=== PATIENT | female | born 1955 | race Caucasian/White ===

== ENCOUNTER → 2016-10-08 | Outpatient (CLI) | payer OTHER ==
[~2016-10-08] MED LIST: ADVAIR 250/501 EA INH; ALBUTEROL0.09 MG/Ac IH; ALLERGY RELIEF10 M1 PO; ALTOCOR60 MG PO; ASPIRIN CHILDRE81 MG PO; BUSPAR5 MG PO; CELEXA40 MG PO; CLARITIN10 MG PO; CORDROL20 MG PO; DIAZEPAM10 MG PO; EC NAPROSYN500 MG PO; GLYBURIDE2.5 MG PO; KEFLEX500 MG PO; LISINOPRIL/HCTZ1 TA3; LISINOPRIL/HCTZ1 TA3 PO; LOVASTATIN40 MG PO; METFORMIN1000 MG PO; METOPROLOL SR50 MG PO; MOTRIN800 MG PO; NAPROXEN500 M1 PO; O; OMEPRAZOLE20 MG PO; ONGLYZA5 MG PO; PERPHENAZINE16 MG PO; PLAVIX75 MG PO; SERTRALINE100 MG PO; TRAMADOL HCL50 MG PO; VALIUM10 MG PO; VIBRAMYCIN100 MG PO; Vicodin 5/500 505 MG PO; ZITHROMAX Z PA250 MG PO; ZITHROMAX250 MG PO; ZOLOFT100 MG PO
[2016-10-08 15:56] LABS: BASO # 0.1 10*3/uL (0.0-0.1); BASO % 0.5 % (0.0-1.0); EOS # 0.2 10*3/uL (0.0-0.4); EOS % 1.5 % (1.0-4.0); HEMATOCRIT 46.1 % (37.0-47.0); HEMOGLOBIN 15.4 g/dl (12.0-16.0); IG # 0.1 10*3/uL (0.0-0.1); LYMPH # 3.5 10*3/uL (1.3-4.4); LYMPH % 27.2 % (27.0-41.0); MEAN CELL VOLUME 89.3 fl (81.0-99.0); MEAN CORPUSCULAR HGB 29.8 pg (27.0-31.0); MEAN CORPUSCULAR HGB CONC 33.4 g/dl (33.0-37.0); MEAN PLATELET VOLUME 9.3 fl (9.6-12.3); MONO # 1.1 10*3/uL (0.1-1.0); MONO % 8.2 % (3.0-9.0); NEUT # 8.1 10*3/uL (2.3-7.9); NEUT % 62.2 % (47.0-73.0); PLATELET COUNT AUTOMATED 294 10*3/uL (130-400); RED BLOOD COUNT 5.16 10*6/uL (4.10-5.10); RED CELL DISTRI WIDTH 12.9 % (0-14.5)
[2016-10-08 16:24] LABS: ALBUMIN 3.9 gm/dl (3.1-4.5); ALKALINE PHOSPHATASE 53 U/L (45-117); BILIRUBIN, TOTAL 0.2 mg/dl (0.2-1.0); BUN 19 mg/dl (7-24); CARBON DIOXIDE 24 mmol/L (21-32); CHLORIDE 104 mmol/L (98-107); CHOLESTEROL 263 mg/dL (<200); EST GLOM FILT AFRICAN AMERICAN > 60 ml/min; GLUCOSE 86 mg/dL (65-99); HDL CHOLESTEROL 41 mg/dl (40-60); LDL CHOLESTEROL 172 mg/dL (9-159); POTASSIUM 4.1 mmol/L (3.5-5.1); SGOT/AST 16 IU/L (3-35); SGPT/ALT 24 U/L (12-78); SODIUM 139 mmol/L (136-145); TOTAL PROTEIN 8.1 gm/dL (6.4-8.2); TRIGLYCERIDES 250 mg/dl (<150); VLDL CHOLESTEROL 50 mg/dL (6-40)
== END | disposition home or self-care (01) ==
LOC: LAB 15:39
PROVIDERS: Internal Medicine
DX: E11.42 Type 2 diabetes mellitus with diabetic polyneuropathy (principal); E78.2 Mixed hyperlipidemia; E55.9 Vitamin D deficiency, unspecified

== ENCOUNTER → 2016-10-17 | Outpatient (CLI) | payer OTHER ==
[~2016-10-17] MED LIST changes: +BENZTROPINE MESY1 MG PO; +CITALOPRAM40 MG PO; +CYCLOBENZAPRINE10 MG PO; +DIAZEPAM5 MG PO; +EVISTA60 MG PO; +GABAPENTIN100 M2 PO; +GLYBURIDE5 MG PO; +IMDUR SA30 MG PO; +JANUVIA100 MG PO; +LISINOPRIL-HYDR1 TA3 PO; +MELOXICAM7.5 MG PO; +OMEPRAZOLE40 MG PO; +OYSTER SHELL CA1 T17 PO; +PERPHENAZINE8 MG PO; +ULTRAM50 MG PO; +VENTOLIN 02.5 MG/3 M INH; +VENTOLIN H0.09 MG/AC INH; +VIT D2 PO
--- NOTE | ~2016-10-17 | ST ---
[place], [place] EXERCISE STRESS TEST REPORT NAME: DEBBIE TRAVIS UNIT #: [id number] ROOM: DOCTOR: NUSRAT KIDD FACP, MD BIRTHDATE: [birth year] DOS: 10/17/2016 Stress test done for evaluation of coronary artery disease, hypercholesterolemia, chest pain. Physical exam is negative. EKG is normal. Lexiscan is injected. Radiological studies are awaited. Nuclear report will be sent to Dr. Plata. JAC FAYE MD CM:STRESS:EXERCISE STRESS TEST REPORT [id number] MELLISA AGUIAR MD
== END | disposition home or self-care (01) ==
LOC: CARD 02:08
DX: I25.110 Atherosclerotic heart disease of native coronary artery with unstable angina pectoris (principal); E78.00 Pure hypercholesterolemia, unspecified; R07.9 Chest pain, unspecified

== ENCOUNTER → 2018-06-03 | Outpatient (CLI) | payer OTHER | END | disposition home or self-care (01) | LOC: RAD 12:07 | DX: M48.061 Spinal stenosis, lumbar region without neurogenic claudication (principal) ==

== ENCOUNTER 2018-07-29 09:08 | Emergency (ER) | payer OTHER ==
[~2018-07-29] VITALS: Ht 162.5 cm; Wt 63.5 kg
--- NOTE | ~2018-07-29 | EKG ---
[place], [place] ELECTROCARDIOGRAM REPORT NAME: DEBBIE TRAVIS UNIT #: [id number] ROOM: DOCTOR: GERMÁN DRAFT REPORT BIRTHDATE: [birth year] [facility] Test Date: 2018-07-29 Test Time: 09:21:40 Pat Name: DEBBIE TRAVIS Department: Room: Gender: F Patient Scheduling Manager: : [id number] Requested By: RAO TOVAR Order Number: [id number] Reading MD: Frederick Hernandez MD Measurements Intervals [place] Rate: 81 P: 82 CO: 162 QRS: 92 QRSD: 92 T: 15 QT: 375 QTc: 436 Interpretive Statements Sinus rhythm Biatrial enlargement Right axis deviation Anteroseptal infarct, old No previous ECG available for comparison Electronically Signed On 07-29-2018 17:20:04 PST by Frederick Hernandez MD CM:EKGRPT:ELECTROCARDIOGRAM REPORT [id number] RAO NAVARRETE DRAFT REPORT RAO TOVAR DO
[2018-07-29 09:12] VITALS: BP 97/57
[2018-07-29 09:41] LABS: HEMOGLOBIN 12.5 g/dl (12.0-16.0); MEAN CELL VOLUME 94.6 fl (81.0-99.0); MEAN CORPUSCULAR HGB 29.6 pg (27.0-31.0); MEAN CORPUSCULAR HGB CONC 31.3 g/dl (33.0-37.0); MEAN PLATELET VOLUME 9.2 fl (9.6-12.3); PLATELET COUNT AUTOMATED 312 10*3/uL (130-400); RED BLOOD COUNT 4.23 10*6/uL (4.10-5.10); RED CELL DISTRI WIDTH 14.1 % (0-14.5); WHITE BLOOD COUNT 10.8 10*3/uL (4.8-10.8)
[2018-07-29 09:52] LABS: ACT PARTIAL THROMBO TIME 27.7 SECONDS (20.8-31.5)
[2018-07-29 09:55] LABS: ALBUMIN 2.6 gm/dl (3.1-4.5); CREATININE 3.37 mg/dL (0.55-1.02); POTASSIUM 4.7 mmol/L (3.5-5.1); TOTAL PROTEIN 7.8 gm/dL (6.4-8.2)
[2018-07-29 10:01] LABS: TROPONIN I 0.411 ng/ml (<0.045)
[2018-07-29 10:04] LABS: ATYPICAL LYMPHS 3 % (0-0); TOTAL CELLS COUNTED 100 #CELLS
[2018-07-29 10:05] LABS: PLATELET SUFFICIENCY NORMAL (NORMAL); POLYCHROMASIA SLIGHT
== END 2018-07-29 10:28 | disposition left against medical advice (07) ==
LOC: ED 09:08
PROVIDERS: Emergency Medicine
DX: J44.1 Chronic obstructive pulmonary disease with (acute) exacerbation (principal); R79.89 Other specified abnormal findings of blood chemistry; Z79.84 Long term (current) use of oral hypoglycemic drugs; Z79.899 Other long term (current) drug therapy

== ENCOUNTER 2022-07-21 18:46 | Emergency (ER) | payer OTHER ==
[~2022-07-21] VITALS: Ht 162.5 cm; Wt 61.2 kg
[~2022-07-21 18:46] MED LIST changes: +CITALOPRAM20 MG PO
[2022-07-21 19:05] VITALS: BP 144/74
[2022-07-21 19:49] LABS: HEMATOCRIT 45.3 % (37.0-47.0); MEAN CELL VOLUME 89.5 fl (81.0-99.0); MEAN CORPUSCULAR HGB 30.6 pg (27.0-31.0); MEAN CORPUSCULAR HGB CONC 34.2 g/dl (33.0-37.0); MEAN PLATELET VOLUME 8.4 fl (9.6-12.3); PLATELET COUNT AUTOMATED 378 10*3/uL (130-400); RED BLOOD COUNT 5.06 10*6/uL (4.10-5.10); RED CELL DISTRI WIDTH 12.7 % (0-14.5)
[2022-07-21 19:55] LABS: MANUAL DIFF REFLEX YES
[2022-07-21 20:05] LABS: ACT PARTIAL THROMBO TIME 25.6 SECONDS (20.0-32.1); INTERNATIONAL NORM RATIO 0.9 (2.0-3.5)
[2022-07-21 20:26] LABS: BILIRUBIN Negative (Negative); BLOOD Negative (Negative); CLARITY Clear (Clear); COLOR Yellow (Yellow); GLUCOSE Negative (Negative); KETONE Negative (Negative); LEUKO ESTERASE Negative (Negative); NITRITE Negative (Negative); PH 5.5 (4.5-8.0); UROBILINOGEN 0.2 E.U./dl (0.0-1.0)
[2022-07-21 20:29] LABS: BASOPHILS 2 % (0-1); PLATELET SUFFICIENCY NORMAL (NORMAL); TOTAL CELLS COUNTED 100 #CELLS
[2022-07-21 20:38] LABS: POTASSIUM 3.9 mmol/L (3.4-5.1); TOTAL PROTEIN 6.9 gm/dL (6.0-8.0)
[2022-07-21 20:44] LABS: BACTERIA TRACE; EPITHELIAL CELLS 16-20; HYALINE CAST 0-2; RBC 0-2 rbc/hpf (0-2); WBC 0-2 wbc/hpf (0-5)
== END 2022-07-21 23:40 | disposition home or self-care (01) ==
LOC: ED 18:46
PROVIDERS: Family Medicine
DX: F20.9 Schizophrenia, unspecified (principal); F41.9 Anxiety disorder, unspecified; G47.00 Insomnia, unspecified; F17.210 Nicotine dependence, cigarettes, uncomplicated; Z79.899 Other long term (current) drug therapy; Z98.890 Other specified postprocedural states

== ENCOUNTER 2022-07-24 10:49 | Emergency (ER) | payer OTHER ==
[~2022-07-24] VITALS: Wt 61.2 kg
[2022-07-24 13:03] LABS: BILIRUBIN Negative (Negative); BLOOD Negative (Negative); CLARITY Clear (Clear); COLOR Yellow (Yellow); GLUCOSE 1+ (Negative); KETONE Negative (Negative); LEUKO ESTERASE Negative (Negative); NITRITE Negative (Negative); PH 5.5 (4.5-8.0); SPECIFIC GRAVITY <= 1.005 (1.001-1.030); UROBILINOGEN 0.2 E.U./dl (0.0-1.0)
[2022-07-24 13:18] LABS: EPITHELIAL CELLS 0-2
[2022-07-24 13:21] VITALS: BP 126/64
== END 2022-07-24 15:15 | disposition home or self-care (01) ==
LOC: ED 10:49
PROVIDERS: Physician Assistant
DX: N90.89 Other specified noninflammatory disorders of vulva and perineum (principal); Z98.890 Other specified postprocedural states; Z72.0 Tobacco use

== ENCOUNTER 2022-08-01 17:52 | Emergency (ER) | payer OTHER ==
[~2022-08-01] VITALS: Wt 61.2 kg
[2022-08-01 18:24] LABS: BASO # 0.1 10*3/uL (0.0-0.1); BASO % 0.4 % (0.0-1.0); EOS # 0.1 10*3/uL (0.0-0.4); EOS % 0.6 % (1.0-4.0); HEMATOCRIT 40.9 % (37.0-47.0); LYMPH # 1.5 10*3/uL (1.3-4.4); LYMPH % 11.1 % (27.0-41.0); MEAN CELL VOLUME 92.7 fl (81.0-99.0); MEAN CORPUSCULAR HGB 30.8 pg (27.0-31.0); MEAN CORPUSCULAR HGB CONC 33.3 g/dl (33.0-37.0); MEAN PLATELET VOLUME 8.6 fl (9.6-12.3); MONO # 0.8 10*3/uL (0.1-1.0); MONO % 5.9 % (3.0-9.0); NEUT # 11.1 10*3/uL (2.3-7.9); NEUT % 81.3 % (47.0-73.0); PLATELET COUNT AUTOMATED 288 10*3/uL (130-400); RED BLOOD COUNT 4.41 10*6/uL (4.10-5.10); RED CELL DISTRI WIDTH 12.7 % (0-14.5); WHITE BLOOD COUNT 13.6 10*3/uL (4.8-10.8)
[2022-08-01 18:39] LABS: ALKALINE PHOSPHATASE 64 U/L (46-116); BUN 8 mg/dl (9-23); CHLORIDE 99 mmol/L (98-107); POTASSIUM 4.2 mmol/L (3.4-5.1); SGPT/ALT 19 U/L (10-49); TOTAL PROTEIN 6.5 gm/dL (6.0-8.0)
[2022-08-01 18:42] LABS: ETHYL ALCOHOL < 3.0 mg/dl (<3)
[2022-08-01 19:32] LABS: BILIRUBIN Negative (Negative); BLOOD Negative (Negative); CLARITY Clear (Clear); COLOR Yellow (Yellow); GLUCOSE Negative (Negative); KETONE Trace (Negative); LEUKO ESTERASE 1+ (Negative); NITRITE Negative (Negative); PH 5.5 (4.5-8.0); SPECIFIC GRAVITY <= 1.005 (1.001-1.030); UROBILINOGEN 0.2 E.U./dl (0.0-1.0)
[2022-08-01 19:39] LABS: URINE AMPHETAMINES Negative (1000ng/ml); URINE BARBITURATES Negative (200ng/ml); URINE BENZODIAZEPINES Negative (200ng/ml); URINE CANNABINOIDS (THC) Negative (50ng/ml); URINE COCAINE Negative (300ng/ml); URINE METHADONE Negative (300ng/ml); URINE OPIATES Negative (300ng/ml); URINE PHENCYCLIDINE Negative (25ng/ml)
[2022-08-01 19:40] LABS: BACTERIA TRACE
[2022-08-02 08:00] VITALS: BP 130/70
== END 2022-08-02 12:28 ==
LOC: ED 17:52
PROVIDERS: Emergency Medicine
DX: G40.909 Epilepsy, unspecified, not intractable, without status epilepticus (principal); F06.2 Psychotic disorder with delusions due to known physiological condition; E11.9 Type 2 diabetes mellitus without complications; F31.9 Bipolar disorder, unspecified; Z98.890 Other specified postprocedural states; F10.10 Alcohol abuse, uncomplicated; Z72.0 Tobacco use; Z20.822 Contact with and (suspected) exposure to COVID-19

== ENCOUNTER 2023-09-18 21:30 | Emergency (ER) | payer MEDICARE ==
[~2023-09-18] VITALS: Ht 162.5 cm; Wt 59.0 kg
[2023-09-18 21:32] VITALS: BP 134/76
[2023-09-18 21:54] LABS: BASO # 0.1 10*3/uL (0.0-0.1); BASO % 0.5 % (0.0-1.0); EOS # 0.1 10*3/uL (0.0-0.4); EOS % 0.7 % (1.0-4.0); HEMATOCRIT 43.5 % (37.0-47.0); LYMPH # 1.8 10*3/uL (1.3-4.4); LYMPH % 16.5 % (27.0-41.0); MEAN CELL VOLUME 91.2 fl (81.0-99.0); MEAN CORPUSCULAR HGB 29.6 pg (27.0-31.0); MEAN CORPUSCULAR HGB CONC 32.4 g/dl (33.0-37.0); MEAN PLATELET VOLUME 8.5 fl (9.6-12.3); MONO # 0.9 10*3/uL (0.1-1.0); MONO % 8.5 % (3.0-9.0); NEUT # 7.9 10*3/uL (2.3-7.9); NEUT % 73.3 % (47.0-73.0); PLATELET COUNT AUTOMATED 298 10*3/uL (130-400); RED BLOOD COUNT 4.77 10*6/uL (4.10-5.10); RED CELL DISTRI WIDTH 12.7 % (0-14.5); WHITE BLOOD COUNT 10.8 10*3/uL (4.8-10.8)
[2023-09-18 22:12] LABS: BUN 7 mg/dl (9-23); CHLORIDE 103 mmol/L (98-107); CPK 233 U/L (34-171); ETHYL ALCOHOL < 3.0 mg/dl (<3); POTASSIUM 3.9 mmol/L (3.4-5.1)
[2023-09-18 22:19] LABS: BILIRUBIN Negative (Negative); BLOOD Trace-Lysed (Negative); CLARITY Clear (Clear); COLOR Yellow (Yellow); GLUCOSE Negative (Negative); KETONE Trace (Negative); LEUKO ESTERASE Negative (Negative); NITRITE Negative (Negative); SPECIFIC GRAVITY <= 1.005 (1.001-1.030); UROBILINOGEN 0.2 E.U./dl (0.0-1.0)
[2023-09-18 22:26] LABS: URINE AMPHETAMINES Negative (1000ng/ml); URINE BARBITURATES Negative (200ng/ml); URINE BENZODIAZEPINES Negative (200ng/ml); URINE CANNABINOIDS (THC) Negative (50ng/ml); URINE COCAINE Negative (300ng/ml); URINE METHADONE Negative (300ng/ml); URINE OPIATES Negative (300ng/ml); URINE PHENCYCLIDINE Negative (25ng/ml)
[2023-09-18 22:40] LABS: BACTERIA 1+; RBC 0-2 rbc/hpf (0-2); YEAST TRACE
[2023-09-18] MEDS ORDERED: CIPRO500 MG PO (23:35)
== END 2023-09-19 00:09 | disposition home or self-care (01) ==
LOC: ED 21:30
PROVIDERS: Internal Medicine
DX: F22 Delusional disorders (principal); N39.0 Urinary tract infection, site not specified; J44.9 Chronic obstructive pulmonary disease, unspecified; F32.A Depression, unspecified; E11.9 Type 2 diabetes mellitus without complications; F41.9 Anxiety disorder, unspecified; K21.9 Gastro-esophageal reflux disease without esophagitis; E78.00 Pure hypercholesterolemia, unspecified; I25.10 Atherosclerotic heart disease of native coronary artery without angina pectoris; I10 Essential (primary) hypertension; Z79.899 Other long term (current) drug therapy; Z98.890 Other specified postprocedural states; Z72.0 Tobacco use

== ENCOUNTER 2023-09-20 09:14 | Emergency (ER) | payer OTHER ==
[~2023-09-20] VITALS: Ht 162.5 cm; Wt 56.7 kg
[~2023-09-20 09:14] MED LIST changes: +CIPRO500 MG PO
[2023-09-20 09:21] VITALS: BP 139/89
[2023-09-20 09:54] LABS: BASO # 0.1 10*3/uL (0.0-0.1); BASO % 0.7 % (0.0-1.0); EOS # 0.1 10*3/uL (0.0-0.4); EOS % 1.7 % (1.0-4.0); LYMPH # 1.7 10*3/uL (1.3-4.4); LYMPH % 19.6 % (27.0-41.0); MEAN CELL VOLUME 91.7 fl (81.0-99.0); MEAN CORPUSCULAR HGB 29.6 pg (27.0-31.0); MEAN CORPUSCULAR HGB CONC 32.3 g/dl (33.0-37.0); MEAN PLATELET VOLUME 8.7 fl (9.6-12.3); MONO # 0.7 10*3/uL (0.1-1.0); MONO % 8.4 % (3.0-9.0); NEUT # 5.8 10*3/uL (2.3-7.9); NEUT % 69.2 % (47.0-73.0); PLATELET COUNT AUTOMATED 302 10*3/uL (130-400); RED CELL DISTRI WIDTH 12.7 % (0-14.5); WHITE BLOOD COUNT 8.4 10*3/uL (4.8-10.8)
[2023-09-20 10:13] LABS: ACT PARTIAL THROMBO TIME 28.4 SECONDS (20.0-32.1)
[2023-09-20 10:20] LABS: ALKALINE PHOSPHATASE 71 U/L (46-116); BUN 6 mg/dl (9-23); CHLORIDE 103 mmol/L (98-107); CPK 231 U/L (34-171); LIPASE 197 U/L (12-53); POTASSIUM 3.6 mmol/L (3.4-5.1); SGPT/ALT 17 U/L (5-49); TOTAL PROTEIN 6.6 gm/dL (6.0-8.0)
[2023-09-20 10:22] LABS: ETHYL ALCOHOL < 3.0 mg/dl (<3)
[2023-09-20 11:00] LABS: BILIRUBIN Negative (Negative); BLOOD Negative (Negative); CLARITY Clear (Clear); COLOR Yellow (Yellow); GLUCOSE Negative (Negative); KETONE Negative (Negative); LEUKO ESTERASE Negative (Negative); NITRITE Negative (Negative); PH 6.5 (4.5-8.0); SPECIFIC GRAVITY <= 1.005 (1.001-1.030); UROBILINOGEN 0.2 E.U./dl (0.0-1.0)
[2023-09-20 11:05] LABS: URINE AMPHETAMINES Negative (1000ng/ml); URINE BARBITURATES Negative (200ng/ml); URINE BENZODIAZEPINES Negative (200ng/ml); URINE CANNABINOIDS (THC) Negative (50ng/ml); URINE COCAINE Negative (300ng/ml); URINE METHADONE Negative (300ng/ml); URINE OPIATES Negative (300ng/ml); URINE PHENCYCLIDINE Negative (25ng/ml)
[2023-09-20 11:15] LABS: EPITHELIAL CELLS 0-2; HYALINE CAST 0-2; WBC 0-2 wbc/hpf (0-5); YEAST TRACE
== END 2023-09-20 13:55 | disposition home or self-care (01) ==
LOC: ED 09:14
PROVIDERS: Emergency Medicine
DX: F25.9 Schizoaffective disorder, unspecified (principal); J44.9 Chronic obstructive pulmonary disease, unspecified; F32.A Depression, unspecified; E11.9 Type 2 diabetes mellitus without complications; F41.9 Anxiety disorder, unspecified; K21.9 Gastro-esophageal reflux disease without esophagitis; E78.00 Pure hypercholesterolemia, unspecified; I10 Essential (primary) hypertension; I25.10 Atherosclerotic heart disease of native coronary artery without angina pectoris; R10.2 Pelvic and perineal pain; F10.10 Alcohol abuse, uncomplicated; F17.210 Nicotine dependence, cigarettes, uncomplicated; Z98.890 Other specified postprocedural states; Z95.5 Presence of coronary angioplasty implant and graft; Z79.899 Other long term (current) drug therapy

== ENCOUNTER 2023-09-22 02:41 | Emergency (ER) | payer OTHER ==
[2023-09-22] MEDS ORDERED: ACETAMINOPHEN 325 MG TAB PO ONE (05:05)
[2023-09-22 08:30] LABS: BASO # 0.1 10*3/uL (0.0-0.1); BASO % 0.6 % (0.0-1.0); EOS # 0.2 10*3/uL (0.0-0.4); HEMATOCRIT 42.1 % (37.0-47.0); LYMPH # 2.3 10*3/uL (1.3-4.4); LYMPH % 26.1 % (27.0-41.0); MEAN CELL VOLUME 89.8 fl (81.0-99.0); MEAN CORPUSCULAR HGB 29.9 pg (27.0-31.0); MEAN CORPUSCULAR HGB CONC 33.3 g/dl (33.0-37.0); MONO # 0.9 10*3/uL (0.1-1.0); MONO % 10.7 % (3.0-9.0); NEUT # 5.2 10*3/uL (2.3-7.9); NEUT % 60.3 % (47.0-73.0); PLATELET COUNT AUTOMATED 304 10*3/uL (130-400); RED BLOOD COUNT 4.69 10*6/uL (4.10-5.10); RED CELL DISTRI WIDTH 12.8 % (0-14.5); WHITE BLOOD COUNT 8.6 10*3/uL (4.8-10.8)
[2023-09-22 08:46] LABS: URINE AMPHETAMINES Negative (1000ng/ml); URINE BARBITURATES Negative (200ng/ml); URINE BENZODIAZEPINES Negative (200ng/ml); URINE CANNABINOIDS (THC) Negative (50ng/ml); URINE COCAINE Negative (300ng/ml); URINE METHADONE Negative (300ng/ml); URINE OPIATES Negative (300ng/ml); URINE PHENCYCLIDINE Negative (25ng/ml)
[2023-09-22 08:54] LABS: BUN 12 mg/dl (9-23); CHLORIDE 104 mmol/L (98-107); CPK 170 U/L (34-171); POTASSIUM 3.6 mmol/L (3.4-5.1)
[2023-09-22 08:55] LABS: ETHYL ALCOHOL < 3.0 mg/dl (<3)
[2023-09-22 09:25] LABS: BILIRUBIN Negative (Negative); BLOOD Negative (Negative); CLARITY Clear (Clear); COLOR Yellow (Yellow); GLUCOSE Trace (Negative); KETONE Negative (Negative); LEUKO ESTERASE Negative (Negative); NITRITE Negative (Negative); PH 6.5 (4.5-8.0); UROBILINOGEN 0.2 E.U./dl (0.0-1.0)
[2023-09-22 10:21] VITALS: BP 142/80
== END 2023-09-22 12:43 ==
LOC: ED 02:41
PROVIDERS: Internal Medicine
DX: F25.9 Schizoaffective disorder, unspecified (principal); J44.9 Chronic obstructive pulmonary disease, unspecified; F32.A Depression, unspecified; E11.9 Type 2 diabetes mellitus without complications; F41.9 Anxiety disorder, unspecified; K21.9 Gastro-esophageal reflux disease without esophagitis; E78.00 Pure hypercholesterolemia, unspecified; I10 Essential (primary) hypertension; I25.10 Atherosclerotic heart disease of native coronary artery without angina pectoris; F10.10 Alcohol abuse, uncomplicated; F17.200 Nicotine dependence, unspecified, uncomplicated; Z98.890 Other specified postprocedural states; Z79.899 Other long term (current) drug therapy

== ENCOUNTER 2023-10-03 14:47 | Inpatient (IN) | payer OTHER ==
[~2023-10-03] VITALS: Ht 162.5 cm; Wt 63.3 kg
[2023-10-03 14:51] VITALS: BP 129/67
[2023-10-03 15:15] LABS: BASO % 0.1 % (0.0-1.0); EOS % 0.1 % (1.0-4.0); HEMATOCRIT 42.3 % (37.0-47.0); LYMPH # 0.9 10*3/uL (1.3-4.4); LYMPH % 9.9 % (27.0-41.0); MEAN CELL VOLUME 85.3 fl (81.0-99.0); MEAN CORPUSCULAR HGB 29.6 pg (27.0-31.0); MEAN CORPUSCULAR HGB CONC 34.8 g/dl (33.0-37.0); MEAN PLATELET VOLUME 8.8 fl (9.6-12.3); MONO # 0.6 10*3/uL (0.1-1.0); MONO % 6.5 % (3.0-9.0); NEUT # 7.5 10*3/uL (2.3-7.9); NEUT % 82.7 % (47.0-73.0); PLATELET COUNT AUTOMATED 292 10*3/uL (130-400); RED BLOOD COUNT 4.96 10*6/uL (4.10-5.10); RED CELL DISTRI WIDTH 11.9 % (0-14.5); WHITE BLOOD COUNT 9.1 10*3/uL (4.8-10.8)
[2023-10-03 15:36] LABS: ALKALINE PHOSPHATASE 71 U/L (46-116); BUN 10 mg/dl (9-23); CHLORIDE 87 mmol/L (98-107); CPK 258 U/L (34-171); ETHYL ALCOHOL 3.1 mg/dl (<3); LIPASE 27 U/L (12-53); POTASSIUM 4.1 mmol/L (3.4-5.1); SGPT/ALT 15 U/L (5-49); TOTAL PROTEIN 6.7 gm/dL (6.0-8.0)
[2023-10-03] MEDS ORDERED: SODIUM CHLORIDE 0.9% 1,000 ML IV ONE (15:55)
[2023-10-03] MEDS ORDERED: MAGNESIUM SULFATE 100 ML IV ONE (15:55)
[2023-10-03] MEDS ORDERED: TEMAZEPAM 15 MG CAP PO PRN (16:45)
[2023-10-03] MEDS ORDERED: Ondansetron Hydrochloride 4 MG/2 ML VIAL IV PRN (16:45)
[2023-10-03] MEDS ORDERED: BISACODYL 5 MG TAB PO PRN (16:45)
[2023-10-03] MEDS ORDERED: ACETAMINOPHEN 650 MG SUPP R PRN (16:45)
[2023-10-03] MEDS ORDERED: MORPHINE Sulfate 2 MG/ML SYR IV PRN (16:45)
[2023-10-03] MEDS ORDERED: ACETAMINOPHEN 325 MG TAB PO PRN (16:45)
[2023-10-03] MEDS ORDERED: Magnesium Hydroxide 30 ML UDC PO PRN (16:45)
[2023-10-03] MEDS ORDERED: Acetaminophen/Hydrocodone 5 MG/325 MG TABLET PO PRN (16:45)
[2023-10-03] MEDS ORDERED: BISACODYL 10 MG SUPP R PRN (16:45)
[2023-10-03] MEDS ORDERED: DEXTROSE 10 % IN WATER 250 ML IV PRN (16:45)
[2023-10-03 16:48] VITALS: BP 101/60
[2023-10-03] MEDS ORDERED: Thiamine 100 MG TAB PO SCH (17:45)
[2023-10-03 17:50] LABS: BILIRUBIN Negative (Negative); BLOOD Negative (Negative); CLARITY Clear (Clear); COLOR Yellow (Yellow); GLUCOSE Negative (Negative); KETONE 1+ (Negative); LEUKO ESTERASE Negative (Negative); NITRITE Negative (Negative)
[2023-10-03 17:53] LABS: URINE AMPHETAMINES Negative (1000ng/ml); URINE BARBITURATES Negative (200ng/ml); URINE BENZODIAZEPINES Negative (200ng/ml); URINE CANNABINOIDS (THC) Negative (50ng/ml); URINE COCAINE Negative (300ng/ml); URINE METHADONE Negative (300ng/ml); URINE OPIATES Negative (300ng/ml); URINE PHENCYCLIDINE Negative (25ng/ml)
[2023-10-03 17:57] LABS: HYALINE CAST 0-2; MUCOUS 1+; RBC 0-2 rbc/hpf (0-2)
[2023-10-03 18:22] VITALS: BP 95/48
[2023-10-03 20:10] VITALS: BP 101/48
[2023-10-03 21:09] LABS: BUN 12 mg/dl (9-23); CHLORIDE 90 mmol/L (98-107)
[2023-10-03] MEDS ORDERED: INSULIN LISPRO 1 UNIT/0.01 ML SQ SCH (22:00)
[2023-10-04] VITALS: BP 104/53
[2023-10-04 00:43] LABS: BUN 9 mg/dl (9-23); CHLORIDE 94 mmol/L (98-107); POTASSIUM 3.7 mmol/L (3.4-5.1)
[2023-10-04] MEDS ORDERED: FENOFIBRATE145 M1 PO (05:26)
[2023-10-04] MEDS ORDERED: PROAIR DIGIHAL90 MCG INH (05:29)
[2023-10-04] MEDS ORDERED: ACETAMINOPHEN500 M4 PO (05:30)
[2023-10-04] MEDS ORDERED: ZESTORETIC 20-1 EACH PO (05:33)
[2023-10-04] MEDS ORDERED: ROSUVASTATIN CA40 MG PO (05:34)
[2023-10-04] MEDS ORDERED: METOPROLOL SUCC50 M1 PO (05:34)
[2023-10-04] MEDS ORDERED: VITAMIN C500 M4 PO (05:35)
[2023-10-04] MEDS ORDERED: VITAMIN D325 MCG PO (05:36)
[2023-10-04] MEDS ORDERED: LAMOTRIGINE25 M1 PO (05:39)
[2023-10-04] MEDS ORDERED: RISPERIDONE0.5 MG PO (05:39)
[2023-10-04] MEDS ORDERED: TRAZODONE50 MG PO (05:40)
[2023-10-04 06:23] LABS: BASO % 0.3 % (0.0-1.0); EOS # 0.1 10*3/uL (0.0-0.4); EOS % 0.9 % (1.0-4.0); HEMATOCRIT 43.4 % (37.0-47.0); LYMPH # 1.7 10*3/uL (1.3-4.4); LYMPH % 25.8 % (27.0-41.0); MEAN CELL VOLUME 86.6 fl (81.0-99.0); MEAN CORPUSCULAR HGB 29.7 pg (27.0-31.0); MEAN CORPUSCULAR HGB CONC 34.3 g/dl (33.0-37.0); MEAN PLATELET VOLUME 9.4 fl (9.6-12.3); MONO % 14.9 % (3.0-9.0); NEUT # 3.9 10*3/uL (2.3-7.9); NEUT % 57.4 % (47.0-73.0); PLATELET COUNT AUTOMATED 297 10*3/uL (130-400); RED BLOOD COUNT 5.01 10*6/uL (4.10-5.10); RED CELL DISTRI WIDTH 12.2 % (0-14.5); WHITE BLOOD COUNT 6.7 10*3/uL (4.8-10.8)
[2023-10-04 06:38] LABS: BUN 14 mg/dl (9-23); CHLORIDE 95 mmol/L (98-107); CHOLESTEROL 251 mg/dL (<200); LDL CHOLESTEROL 172 mg/dL (9-159); POTASSIUM 3.9 mmol/L (3.4-5.1); TRIGLYCERIDES 208 mg/dl (<150)
[2023-10-04 07:12] LABS: VITAMIN D, 25-HYDROXY 14.9 ng/mL (30-100)
[2023-10-04 08:00] VITALS: BP 92/70
[2023-10-04 09:38] LABS: BUN 16 mg/dl (9-23); CHLORIDE 94 mmol/L (98-107); POTASSIUM 4.1 mmol/L (3.4-5.1)
[2023-10-04] MEDS ORDERED: Enoxaparin Sodium 40 MG/0.4 ML SYR SC SCH (10:00)
[2023-10-04 12:00] VITALS: BP 122/92
[2023-10-04 15:21] LABS: BUN 21 mg/dl (9-23); CHLORIDE 96 mmol/L (98-107); POTASSIUM 4.3 mmol/L (3.4-5.1)
[2023-10-04 16:00] VITALS: BP 147/80
[2023-10-04] MEDS ORDERED: DEXTROSE 5% 500 ML IV ONE (16:25)
[2023-10-04] MEDS ORDERED: Thiamine 100 MG TAB PO SCH (19:26)
[2023-10-04 20:00] VITALS: BP 101/52
[2023-10-05] VITALS: BP 135/55
[2023-10-05 06:34] LABS: BASO % 0.4 % (0.0-1.0); EOS # 0.1 10*3/uL (0.0-0.4); EOS % 1.3 % (1.0-4.0); HEMATOCRIT 47.7 % (37.0-47.0); LYMPH # 2.2 10*3/uL (1.3-4.4); MEAN CORPUSCULAR HGB 29.2 pg (27.0-31.0); MEAN CORPUSCULAR HGB CONC 32.5 g/dl (33.0-37.0); MEAN PLATELET VOLUME 9.1 fl (9.6-12.3); MONO # 1.1 10*3/uL (0.1-1.0); MONO % 19.4 % (3.0-9.0); NEUT # 2.1 10*3/uL (2.3-7.9); NEUT % 38.2 % (47.0-73.0); PLATELET COUNT AUTOMATED 328 10*3/uL (130-400); RED BLOOD COUNT 5.31 10*6/uL (4.10-5.10); RED CELL DISTRI WIDTH 12.4 % (0-14.5); WHITE BLOOD COUNT 5.6 10*3/uL (4.8-10.8)
[2023-10-05 06:35] LABS: MEAN CELL VOLUME 89.8 fl (81.0-99.0)
[2023-10-05 07:26] LABS: BUN 16 mg/dl (9-23); CHLORIDE 99 mmol/L (98-107); POTASSIUM 4.6 mmol/L (3.4-5.1)
[2023-10-05 08:00] VITALS: BP 103/62
[2023-10-05] MEDS ORDERED: Cholecalciferol 2,000 UNIT TABLET (50 MCG) PO SCH (10:00)
[2023-10-05 12:00] VITALS: BP 154/50
[2023-10-05] MEDS ORDERED: DEXTROSE 5% 500 ML IV SCH (12:40)
[2023-10-05] MEDS ORDERED: LORazepam 0.5 MG TAB PO PRN (13:35)
[2023-10-05] MEDS ORDERED: ALBUTEROL 8 GM INHALER INH PRN (13:40)
[2023-10-05] MEDS ORDERED: Albuterol Sulfate 2.5 MG/3 ML VIAL NEB PRN (13:55)
[2023-10-05 15:54] VITALS: BP 105/56
[2023-10-05 20:00] VITALS: BP 162/77
[2023-10-05] MEDS ORDERED: Nicotine 14 MG PATCH T SCH (20:00)
[2023-10-05] MEDS ORDERED: RISPERIDONE 0.5 MG TAB PO SCH (22:00)
[2023-10-05] MEDS ORDERED: ASCORBIC ACID 500 MG TAB PO SCH (22:00)
[2023-10-06] VITALS: BP 137/52
[2023-10-06 06:39] LABS: BASO % 0.4 % (0.0-1.0); EOS # 0.1 10*3/uL (0.0-0.4); EOS % 1.5 % (1.0-4.0); HEMATOCRIT 46.2 % (37.0-47.0); LYMPH # 2.7 10*3/uL (1.3-4.4); LYMPH % 39.9 % (27.0-41.0); MEAN CORPUSCULAR HGB 29.8 pg (27.0-31.0); MONO # 0.9 10*3/uL (0.1-1.0); MONO % 12.7 % (3.0-9.0); NEUT # 3.1 10*3/uL (2.3-7.9); NEUT % 44.9 % (47.0-73.0); PLATELET COUNT AUTOMATED 311 10*3/uL (130-400); RED BLOOD COUNT 4.96 10*6/uL (4.10-5.10); RED CELL DISTRI WIDTH 12.7 % (0-14.5); WHITE BLOOD COUNT 6.9 10*3/uL (4.8-10.8)
[2023-10-06 06:41] LABS: MEAN CELL VOLUME 93.1 fl (81.0-99.0)
[2023-10-06 07:08] LABS: BUN 16 mg/dl (9-23); CHLORIDE 105 mmol/L (98-107); POTASSIUM 4.7 mmol/L (3.4-5.1)
[2023-10-06 08:00] VITALS: BP 154/90
[2023-10-06] MEDS ORDERED: ISOSORBIDE MONONITRATE 30 MG TAB PO SCH (10:00)
[2023-10-06] MEDS ORDERED: ATORVASTATIN CALCIUM 80 MG TAB PO SCH (10:00)
[2023-10-06] MEDS ORDERED: LINAGLIPTIN 5 MG TAB PO SCH (10:00)
[2023-10-06] MEDS ORDERED: FENOFIBRATE 145 MG TAB PO SCH (10:00)
[2023-10-06] MEDS ORDERED: METOPROLOL SUCCINATE XR 50 MG TAB PO SCH (10:00)
[2023-10-06] MEDS ORDERED: DIVALPROEX (DR) 250 MG TAB PO ONE (11:05)
[2023-10-06 12:00] VITALS: BP 154/84
[2023-10-06 16:00] VITALS: BP 148/56
[2023-10-06] MEDS ORDERED: RISPERIDONE 1 MG TAB PO SCH (18:00)
[2023-10-06 20:00] VITALS: BP 136/78
[2023-10-07] VITALS: BP 100/52
[2023-10-07 06:20] LABS: BUN 17 mg/dl (9-23); CHLORIDE 105 mmol/L (98-107); POTASSIUM 4.5 mmol/L (3.4-5.1)
[2023-10-07 06:41] LABS: BASO % 0.4 % (0.0-1.0); EOS # 0.1 10*3/uL (0.0-0.4); EOS % 1.1 % (1.0-4.0); HEMATOCRIT 41.7 % (37.0-47.0); LYMPH # 2.6 10*3/uL (1.3-4.4); LYMPH % 23.4 % (27.0-41.0); MEAN CELL VOLUME 93.1 fl (81.0-99.0); MEAN CORPUSCULAR HGB 30.4 pg (27.0-31.0); MEAN CORPUSCULAR HGB CONC 32.6 g/dl (33.0-37.0); MONO % 9.1 % (3.0-9.0); NEUT # 7.2 10*3/uL (2.3-7.9); NEUT % 65.3 % (47.0-73.0); PLATELET COUNT AUTOMATED 339 10*3/uL (130-400); RED BLOOD COUNT 4.48 10*6/uL (4.10-5.10); RED CELL DISTRI WIDTH 12.5 % (0-14.5)
[2023-10-07 08:00] VITALS: BP 149/54
[2023-10-07] MEDS ORDERED: Nicotine 14 MG PATCH T PRN (08:13)
[2023-10-07] MEDS ORDERED: DIVALPROEX (DR) 250 MG TAB PO SCH (10:00)
[2023-10-07 12:00] VITALS: BP 110/70
[2023-10-07 16:00] VITALS: BP 109/49
[2023-10-07 20:00] VITALS: BP 109/51
[2023-10-08] VITALS: BP 131/58
[2023-10-08 07:10] LABS: BUN 21 mg/dl (9-23); CHLORIDE 109 mmol/L (98-107); POTASSIUM 4.8 mmol/L (3.4-5.1)
[2023-10-08 08:00] VITALS: BP 101/55
[2023-10-08 12:00] VITALS: BP 116/70
[2023-10-08 16:00] VITALS: BP 138/55
[2023-10-08 20:00] VITALS: BP 129/68
[2023-10-09] VITALS: BP 127/68
[2023-10-09 06:48] LABS: BUN 13 mg/dl (9-23); CHLORIDE 105 mmol/L (98-107); POTASSIUM 4.7 mmol/L (3.4-5.1)
[2023-10-09 08:00] VITALS: BP 113/71
[2023-10-09 12:00] VITALS: BP 99/73
[2023-10-09] MEDS ORDERED: DIVALPROEX SOD250 MG PO (14:51)
[2023-10-09] MEDS ORDERED: RISPERDAL1 M1 PO (14:51)
[2023-10-09] MEDS ORDERED: NATURE'S BLEND100 M2 PO (14:51)
== END 2023-10-09 16:35 | DRG 641 ==
LOC: ED 14:47 → 4E 16:01 → EDHOLD 16:01 → 4E 19:37
PROVIDERS: Internal Medicine; Student in an Organized Health Care Education/Training Program; ADMIT Internal Medicine; ATTEND Internal Medicine
DX: E87.1 Hypo-osmolality and hyponatremia (principal); M62.82 Rhabdomyolysis; F30.9 Manic episode, unspecified; R63.1 Polydipsia; J44.9 Chronic obstructive pulmonary disease, unspecified; F25.0 Schizoaffective disorder, bipolar type; F41.9 Anxiety disorder, unspecified; K21.00 Gastro-esophageal reflux disease with esophagitis, without bleeding; E83.42 Hypomagnesemia; R78.0 Finding of alcohol in blood; Z79.1 Long term (current) use of non-steroidal anti-inflammatories (NSAID); Z79.899 Other long term (current) drug therapy; Z79.51 Long term (current) use of inhaled steroids; Z82.5 Family history of asthma and other chronic lower respiratory diseases; Z80.1 Family history of malignant neoplasm of trachea, bronchus and lung; E11.65 Type 2 diabetes mellitus with hyperglycemia

== ENCOUNTER → 2024-04-29 | Outpatient (CLI) | payer MEDICARE ==
[~2024-04-29] MED LIST changes: +ACETAMINOPHEN500 M4 PO; +DIVALPROEX SOD250 MG PO; +FENOFIBRATE145 M1 PO; +LAMOTRIGINE25 M1 PO; +METOPROLOL SUCC50 M1 PO; +NATURE'S BLEND100 M2 PO; +PROAIR DIGIHAL90 MCG INH; +RISPERDAL1 M1 PO; +RISPERIDONE0.5 MG PO; +ROSUVASTATIN CA40 MG PO; +TRAZODONE50 MG PO; +VITAMIN C500 M4 PO; +VITAMIN D325 MCG PO; +ZESTORETIC 20-1 EACH PO
== END | disposition home or self-care (01) ==
LOC: US 12:37
PROVIDERS: ATTEND Family Medicine
DX: Z12.2 Encounter for screening for malignant neoplasm of respiratory organs (principal); J43.2 Centrilobular emphysema; R91.8 Other nonspecific abnormal finding of lung field; J44.9 Chronic obstructive pulmonary disease, unspecified; I25.10 Atherosclerotic heart disease of native coronary artery without angina pectoris; F17.210 Nicotine dependence, cigarettes, uncomplicated

== ENCOUNTER 2024-12-25 10:23 | Emergency (ER) | payer OTHER ==
[~2024-12-25] VITALS: Ht 162.5 cm; Wt 56.7 kg
[2024-12-25 10:54] VITALS: BP 149/71
[2024-12-25] MEDS ORDERED: Bacitracin Zinc 14 GM TUBE T ONE (12:00)
[2024-12-25] MEDS ORDERED: Doxycycline Hyclate 100 MG CAPSULE PO ONE (12:00)
[2024-12-25] MEDS ORDERED: VIBRAMYCIN100 MG PO (12:04)
== END 2024-12-25 12:37 | disposition home or self-care (01) ==
LOC: ED 10:23
DX: L08.9 Local infection of the skin and subcutaneous tissue, unspecified (principal)